=== PATIENT | male | born 1980 | race Caucasian/White ===

== ENCOUNTER 2020-01-08 09:41 | Outpatient (REF) | payer OTHER, SELFPAY ==
[2020-01-08 10:18] LABS: COVID-19 Test Negative (Negative); IDNOW Serial# 55D5AD1C
== END 2020-01-08 09:42 | disposition home or self-care (01) ==
LOC: HO.LAB 09:41
PROVIDERS: PCP Physician Assistant; Visit Provider Internal Medicine
DX: Z20.828 Contact with and (suspected) exposure to other viral communicable diseases (principal)
CPT/HCPCS: 87635; C9803

== ENCOUNTER → 2021-08-30 09:14 | Outpatient (BNVA) | payer SELFPAY | PROVIDERS: PCP Physician Assistant; Visit Provider Physician Assistant Medical | DX: Z02.79 Encounter for issue of other medical certificate (principal) ==

== ENCOUNTER 2021-11-06 07:25 | Emergency (ER) | payer OTHER, SELFPAY ==
--- NOTE | ~2021-11-06 | CT_ITS ---
EXAMINATION: CT ABDOMEN AND PELVIS WITH CONTRAST CLINICAL INFORMATION: Fever, urinary tract infection and back pain COMPARISON: Previous renal ultrasound April [address] of the abdomen and pelvis March 2019 TECHNIQUE: Multidetector volumetric images were obtained from the superior aspect of the liver through the pubic symphysis following administration 85 mL of Omnipaque 350 intravenous contrast. Sagittal and coronal reformatted images were obtained on the technologist's workstation. Oral contrast: Yes This CT examination was performed using dose optimization techniques as appropriate, variously including the following: *Automated exposure control *Adjustment of mA and/or kV according to patient size (this includes techniques or standardized protocols for targeted exams where dose is matched to indication/reason for exam; i.e. extremities or head) *Use of iterative reconstruction technique DLP: 581 mGy-cm FINDINGS: LUNG BASES: The visualized lung bases are unremarkable. LIVER, GALLBLADDER, AND BILIARY TREE: The liver is upper normal in size. The liver is normal in attenuation and contour. No focal hepatic lesion or biliary ductal dilatation is present. The gallbladder is unremarkable with no evidence of radiopaque gallstones, gallbladder wall thickening, or obvious pericholecystic inflammatory changes. PANCREAS: Unremarkable. SPLEEN: The spleen is upper normal in size measuring 14 cm in length. ADRENAL GLANDS: Unremarkable. KIDNEYS AND URETERS: The right kidney is larger than the left. The right kidney measures 14.3 and the left 11.7 cm in length. There may be a duplicated right renal collecting system. There is asymmetric increased right perinephric fat stranding, particularly adjacent to the upper pole of the right kidney. This extends superiorly under the right hemidiaphragm. There is a small amount of perinephric fluid adjacent to the lower pole of the right kidney. There is heterogeneous enhancement of the upper pole of the right kidney with approximately 4 cm area of low attenuation suggestive of pyelonephritis. There is a 2 x 4 mm stone in the lower pole of the right kidney. No left renal stone is seen. No hydronephrosis, ureteral dilatation or ureteral stone is seen. BLADDER: Not optimally distended but appears unremarkable. GASTROINTESTINAL TRACT: There are fluid-filled loops of small and large bowel probably representing an ileus. The appendix is not seen. The stomach is normal. ABDOMINAL WALL: No significant hernia is appreciated. LYMPH NODES: Normal. VASCULAR: Unremarkable. PELVIC VISCERA: Unremarkable. OSSEOUS STRUCTURES: Mild degenerative changes of the left hip joint. CT/CT abdomen pelvis w IV con IMPRESSION: Enlarged right kidney and right pyelonephritis. Small right lower pole renal stone. No hydronephrosis. Fleischner guidelines were followed.
[2021-11-06 07:47] LABS: Appearance Urine Turbid; Color Urine Dark Yellow; Glucose Urine UA Negative (Negative); Leukocyte Esterase Urine Large (3+) (Negative); Nitrite Urine Positive (Negative); PH 6.5 (5.0-9.0); Specific Gravity - Urine 1.025 (1.005-1.025); UMIC TRIGGER UACC YES; Urine Blood Moderate (2+) (Negative); Urine Ketones Trace mg/dL (Negative); Urine Protein 300 (3+) mg/dL (Neg-Trace)
[2021-11-06 07:52] VITALS: BP 149/79; PULSE 120; RESP 18; TEMP 38.9; O2SAT 96; BMI 27.8
[2021-11-06 07:52] LABS: Bacteria Urine 4+ (None Seen); Hyaline Casts Urine 0-2 /LPF (0-2); RBC Urine >20 /HPF (0-2); Squamous Epithelial Cell Urine 0-2 /HPF (0-2); UACC Culture Trigger YES; WBC Urine >50 /HPF (0-5)
[2021-11-06 08:35] VITALS: BP 147/91; PULSE 121; RESP 20; TEMP 37.7; O2SAT 96
[2021-11-06] MEDS: Cyclobenzaprine HCl 10 MG TABLET PO (09:00)
[2021-11-06] MEDS: 0.9 % Sodium Chloride 1,000 ML 999 ML IVCONT (09:01)
[2021-11-06] MEDS: levoFLOXacin/D5W 750 MG/150 ML PIGGYBACK 100 MG IV (09:01)
--- NOTE | 2021-11-06 09:02 | ED.MALEGU ---
HPI - Male Genitourinary General Chief complaint: Urogenital-Male Stated complaint: UTI Time Seen by Provider: 11/06/21 08:15 Source: patient Mode of arrival: ambulatory Limitations: no limitations History of Present Illness HPI Narrative: 41-year-old male with a past medical history of hypospadiaus, kidney stones seen by Urology in the past here who has prior history of cystoscope/lithotripsy/renal stenting in 2018 presenting to the ER with complaints of fevers, chills, fatigue, malaise, dysuria, urinary frequency/urgency with lower back pain since the past 2 days worse today. Reports he has been taking Motrin Tylenol and took 100 mg of Motrin at 06:00 prior to arrival. He reports he is and does not believe he has an STD and does not want to be tested for STDs at this time. He denies any dizziness, headaches, neck pain/stiffness, trouble swallowing or breathing, chest pain or shortness of breath, flank pain, abdominal pain, radiation of the back pain, hematuria, abnormal penile discharge, rashes, recent travel or sick contacts or any other symptoms complaints or concerns at this time. MD Complaint: dysuria Onset (ago): day(s) (3) Duration: constant and progressively worsening Severity: mild Relieving factors: none Exacerbating factors: urination Associated symptoms: Reports other (Back pain) Related Data Sexually active: Yes (With his he does not believe he has any STDs) Previous Rx's Medication Instructions Recorded cyclobenzaprine 10 mg tablet 10 mg PO Q8H #14 tabs 11/06/21 levofloxacin 750 mg tablet 750 mg PO DAILY UTI/pyelonephritis 11/06/21 7 days #7 tabs ondansetron 4 mg disintegrating 4 mg PO Q8H #14 tabs 11/06/21 tablet Allergies Allergy/AdvReac Type Severity Reaction Status Date / Time No Known Allergies Allergy Verified 11/06/21 07:51 [No Known Allergies*] Review of Systems Review of Systems: Constitutional : No Weight loss, No Fever, No Chills, No Night Sweats, No Fatigue, NoMalaise ENT/Mouth: No ear pain, No sore throat, No Difficulty swallowing Cardiovascular : No Chest Pain, No SOB, No Dyspnea on Exertion, No Orthopnea, NoEdema, No Palpitations Respiratory : No Cough, No Sputum, No Wheezing, No Dyspnea Gastrointestinal : No Nausea, No Vomiting, No Diarrhea, + abdominal Pain, No Hematochezia, No Melena Genitourinary : + Dysuria/urinary frequency/urgency, No testicular pain, No irregular bleeding, No Hematuria,No Urinary Incontinence, No Flank Pain Musculoskeletal : + back pain, No joint pain, No Myalgias, No Joint Swelling Skin : No Skin Lesions, No rash Neuro : No Weakness, No Numbness, No Paresthesias, No Loss of Consciousness, NoDizziness, No Headache Psych : No Social Issues, Heme/Lymph: No Bruising, No Bleeding,No Lymphadenopathy Endocrine : No Polyuria, No Polydipsia, No Temperature Intolerance PATIENT DENIES ANY THOUGHTS OF STDS Yes all other systems are reviewed and are negative [facility] Past Medical History Attestation statement: The following information was validated with the patient. Source: old records reviewed and nursing notes reviewed Social History Social History Patient Tobacco Use Status: Former Tobacco user Use of substances other than those prescribed or required for medical reasons: No Advance Directives: No Advance Directives Information Provided: Yes Physical Exam Vital Signs: Vital Signs: Last Vital Signs Temp 99.7 F 11/06/21 10:57 Pulse 113 H 11/06/21 10:57 Resp 16 11/06/21 10:57 BP 137/87 11/06/21 10:57 Pulse Ox 97 11/06/21 10:57 O2 Del Method 11/06/21 10:57 BMI result Body Mass Index 27.8 vital signs have been reviewed as normal and appeared to be correct. Blood pressure 149/79 Heart rate 120 Respiration rate normal. Temperature 102.1. Oxygen saturation normal. Appearance: Alert. Oriented X3. No acute distress. Head: Normal external exam. Normocephalic. Atraumatic. Eyes: PERRLA. EOMI. Conjunctiva and sclera normal. Eyelids normal. ENT: Pharynx normal. Uvula midline. Moist mucous membranes. No lesions/ulcerations or masses noted on the tongue. Normal voice. Neck: Normal inspection. Neck supple. FROM. No adenopathy. Thyroid Normal. No meningeal signs. CVS: Normal heart rate and rhythm. Heart sound normal. Pulses normal throughout. No murmurs/rales/gallops. Respiratory: No respiratory distress. Painless inspiration. Breath sounds normal. No wheezes/rales/rhonchi noted. Chest nontender. No accessory muscle usage noted or decreased air movement noted. Abdomen: Soft and nontender. Nondistended. No guarding. No rigidity. Bowel sounds normal in all 4 quadrants. No distention noted. No organomegaly noted. No visible injury noted. No rebound tenderness. Negative Rovsing sign. Negative obturator's sign. Negative psoas sign. Negative Acharya sign. Back: No CVA tenderness. Full range of motion noted. Nontender. No signs of trauma. Patient neuro intact bilaterally and distally on all 4 extremities. Patient's reflexes intact bilaterally and distally on all 4 extremities. No rashes/lesion/induration/fluctuance or signs of infection noted. Skin: Skin warm and dry. Normal skin color. Normal skin turgor. No rashes/lesions/lacerations noted. Extremities: Extremities exhibit normal range of motion and nontender. Neuro: Oriented X 3. No motor deficit. No sensory deficit. Reflexes normal. Normal steady gait. No focal neuro deficits noted. CN's II-XII intact bilaterally? Vascular: + radial pulses/+ 2 distal pedal pulses/+2 dorsalis pedis b/l. Normal cap refill. No cyanosis noted to upper extremity nails and lower extremity toes nails. Course Course Course Narrative: 845am - 41-year-old male with a past medical history of hypospadiaus, kidney stones seen by Urology in the past here who has prior history of cystoscope/lithotripsy/renal stenting in 2018 presenting to the ER with complaints of fevers, chills, fatigue, malaise, dysuria, urinary frequency/urgency with lower back pain since the past 2 days worse today. Reports he has been taking Motrin Tylenol and took 100 mg of Motrin at 06:00 prior to arrival. He reports he is and does not believe he has an STD and does not want to be tested for STDs at this time. Patient had a urine while he was in the waiting room and the UA has positive nitrates large amount of leukocytes with red blood cells/white blood cells. Plan: Labs, blood cultures, lactic acid, CT scan abdomen pelvis with IV contrast, gonorrhea chlamydia swab despite patient reporting he does not believe he has an STD I explained to him that we should still send the urine and he is agreeable, provide a L of IV fluids with IV Levaquin and re-evaluate. Reevaluation(s) Reevaluation #1: - labs reviewed patient with the leukocytosis of 16,000. Random glucose 141. Total bilirubin 1.3. Otherwise all other labs are within normal limits. - awaiting CT scan of abdomen and pelvis with IV contrast. Time: 09:58 Reevaluation #2: - CT scan abdomen pelvis with IV contrast revealed enlarged right kidney and right pyelonephritis. Small right lower pole renal stone. No hydronephrosis noted. - patient is tolerating p.o. fluids/solids. I did recommend admission although patient with rather will home. Therefore at this time will DC home with p.o. antibiotics along with Zofran and Flexeril and instructions return if any new or worsening symptoms follow up with primary care provider. Patient understands agrees with this plan. Time: 10:58 MDM - Male Genitourinary Medical Records Attestation: I reviewed the patient's medical records. Lab Data Attestation: I reviewed the patient's lab results. Result diagrams: 11/06/21 08:56 09 08:56 Labs: Lab Results 11/06/21 11/06/21 11/06/21 Range/Units 07:35 08:56 08:56 WBC 16.3 H (4.8-10.8) X10*3/uL RBC 5.64 (4.60-5.80) X10*6/uL Hgb 17.3 (14.0-18.0) g/dl Hct 49.1 (42.0-52.0) % MCV 87.1 (80.0-98.0) fL MCH 30.7 (27.0-33.0) pg MCHC 35.2 (31.0-36.0) g/dl RDW 12.6 (11.0-16.0) % Plt Count 172 (160-400) X10*3/uL MPV 9.4 (9.4-12.4) fL Immature Gran % (Auto) 0.4 (0.0-0.4) % Neut % (Auto) 91.9 H (45-73) % Lymph % (Auto) 2.9 L (20-40) % Hardin % (Auto) 4.5 (2-11) % Eos % (Auto) 0.1 (0-4) % Baso % (Auto) 0.2 (0-2) % Lymph # (Auto) 0.5 L (1.2-4.9) X10*3/uL Hardin # (Auto) 0.7 (0.1-1.2) X10*3/uL Eos # (Auto) 0.0 (0.0-0.4) X10*3/uL Baso # (Auto) 0.0 (0.0-0.2) X10*3/uL Abs Immat Gran (auto) 0.07 H (0.00-0.03) X10*3/uL Absolute Neuts (auto) 15.0 H (2.0-8.3) x10*3/uL Absolute Nucleated RBC 0.000 (0.0-0.012) X10*3/uL Nucleated RBC % (auto) 0.0 (0.0-0.2) /100WBC Smear Tech's Comments VERIFIED PT 13.6 H (10.0-13.1) SEC INR 1.2 H (0.9-1.1) Sodium (135-145) mmol/L Potassium (3.3-5.1) mmol/L Chloride (96-108) mmol/L Carbon Dioxide (22-29) mmol/L Anion Gap (12-20) BUN (9-16) mg/dL Creatinine (0.5-1.4) mg/dL Estim Creat Clear Calc Estimated GFR Random Glucose (60-115) mg/dL Lactic Acid (0.5-2.0) mmol/L Calcium (8.4-10.2) mg/dL Magnesium (1.6-2.6) mg/dL Total Bilirubin (0.0-1.0) mg/dL AST (5-37) U/L ALT (0-40) U/L Alkaline Phosphatase (39-117) U/L Total Protein (6.5-8.0) g/dL Albumin (3.5-5.0) g/dL Urine Color Dark Yellow Urine Appearance Turbid Urine pH 6.5 (5.0-9.0) Ur Specific Mans[place] 1.025 (1.005-1.025) Urine Protein 300 (3+) H (Neg-Trace) mg/dL Urine Glucose (UA) Negative (Negative) mg/dL Urine Ketones Trace (Negative) mg/dL Urine Blood Moderate (2+) H (Negative) Urine Nitrite Positive H (Negative) Ur Leukocyte Esterase Large (3+) H (Negative) Urine RBC >20 H (0-2) /HPF Urine WBC >50 H (0-5) /HPF Ur Squamous Epith Cells 0-2 (0-2) /HPF Urine Bacteria 4+ (None Seen) Hyaline Casts 0-2 (0-2) /LPF 11/06/21 11/06/21 Range/Units 08:56 08:56 WBC (4.8-10.8) X10*3/uL RBC (4.60-5.80) X10*6/uL Hgb (14.0-18.0) g/dl Hct (42.0-52.0) % MCV (80.0-98.0) fL MCH (27.0-33.0) pg MCHC (31.0-36.0) g/dl RDW (11.0-16.0) % Plt Count (160-400) X10*3/uL MPV (9.4-12.4) fL Immature Gran % (Auto) (0.0-0.4) % Neut % (Auto) (45-73) % Lymph % (Auto) (20-40) % Hardin % (Auto) (2-11) % Eos % (Auto) (0-4) % Baso % (Auto) (0-2) % Lymph # (Auto) (1.2-4.9) X10*3/uL Hardin # (Auto) (0.1-1.2) X10*3/uL Eos # (Auto) (0.0-0.4) X10*3/uL Baso # (Auto) (0.0-0.2) X10*3/uL Abs Immat Gran (auto) (0.00-0.03) X10*3/uL Absolute Neuts (auto) (2.0-8.3) x10*3/uL Absolute Nucleated RBC (0.0-0.012) X10*3/uL Nucleated RBC % (auto) (0.0-0.2) /100WBC Smear Tech's Comments PT (10.0-13.1) SEC INR (0.9-1.1) Sodium 136 (135-145) mmol/L Potassium 4.0 (3.3-5.1) mmol/L Chloride 96 (96-108) mmol/L Carbon Dioxide 27 (22-29) mmol/L Anion Gap 17 (12-20) BUN 15 (9-16) mg/dL Creatinine 1.35 (0.5-1.4) mg/dL Estim Creat Clear Calc 82.9 Estimated GFR 58 Random Glucose 141 H (60-115) mg/dL Lactic Acid 1.1 (0.5-2.0) mmol/L Calcium 9.2 (8.4-10.2) mg/dL Magnesium 1.8 (1.6-2.6) mg/dL Total Bilirubin 1.3 H (0.0-1.0) mg/dL AST 18 (5-37) U/L ALT 25 (0-40) U/L Alkaline Phosphatase 82 (39-117) U/L Total Protein 7.6 (6.5-8.0) g/dL Albumin 4.6 (3.5-5.0) g/dL Urine Color Urine Appearance Urine pH (5.0-9.0) Ur Specific Mans[place] (1.005-1.025) Urine Protein (Neg-Trace) mg/dL Urine Glucose (UA) (Negative) mg/dL Urine Ketones (Negative) mg/dL Urine Blood (Negative) Urine Nitrite (Negative) Ur Leukocyte Esterase (Negative) Urine RBC (0-2) /HPF Urine WBC (0-5) /HPF Ur Squamous Epith Cells (0-2) /HPF Urine Bacteria (None Seen) Hyaline Casts (0-2) /LPF Imaging Data CT scan abdomen pelvis with IV contrast: Attestation: I personally reviewed and interpreted this imaging study as follows: Radiologist's impression: FINDINGS: LUNG BASES: The visualized lung bases are unremarkable.? LIVER, GALLBLADDER, AND BILIARY TREE: The liver is upper normal in size. The liver is normal in attenuation and contour. No focal hepatic lesion or biliary ductal dilatation is present. The gallbladder is unremarkable with no evidence of radiopaque gallstones, gallbladder wall thickening, or obvious pericholecystic inflammatory changes.? PANCREAS: Unremarkable.? SPLEEN: The spleen is upper normal in size measuring 14 cm in length. ADRENAL GLANDS: Unremarkable.? KIDNEYS AND URETERS: The right kidney is larger than the left. The right kidney measures 14.3 and the left 11.7 cm in length. There may be a duplicated right renal collecting system. There is asymmetric increased right perinephric fat stranding, particularly adjacent to the upper pole of the right kidney. This extends superiorly under the right hemidiaphragm. There is a small amount of perinephric fluid adjacent to the lower pole of the right kidney. There is heterogeneous enhancement of the upper pole of the right kidney with approximately 4 cm area of low attenuation suggestive of pyelonephritis. There is a 2 x 4 mm stone in the lower pole of the right kidney. No left renal stone is seen. No hydronephrosis, ureteral dilatation or ureteral stone is seen. BLADDER: Not optimally distended but appears unremarkable.? GASTROINTESTINAL TRACT: There are fluid-filled loops of small and large bowel probably representing an ileus. The appendix is not seen. The stomach is normal. ABDOMINAL WALL: No significant hernia is appreciated.? LYMPH NODES: Normal. VASCULAR: Unremarkable. PELVIC VISCERA: Unremarkable.? OSSEOUS STRUCTURES: Mild degenerative changes of the left hip joint.? CT/CT abdomen pelvis w IV con IMPRESSION: Enlarged right kidney and right pyelonephritis. Small right lower pole renal stone. No hydronephrosis. ? Fleischner guidelines were followed. Critical Care Time Critical Care Time Critical Care Time: Yes Total Critical Care Time: 60 Attestation: I personally attest to this time spent taking care of the patient Discharge Plan Discharge Clinical Impression: Acute pyelonephritis, Fever, UTI (urinary tract infection), Renal calculi Patient Disposition: Home, Self-Care Instructions: Kidney Infection (ED) Prescriptions: New levofloxacin 750 mg tablet 750 mg PO DAILY 7 Days Qty: 7 0RF ondansetron 4 mg tablet,disintegrating 4 mg PO Q8H Qty: 14 0RF cyclobenzaprine 10 mg tablet 10 mg PO Q8H Qty: 14 0RF Referrals: Dani Corcoran MD [Physician] - (Call on Monday to make a follow-up appointment within the next few weeks) Max Rayo PA [Primary Care Provider] - Stand Alone Forms: Work/School Release
[2021-11-06 09:09] LABS: INTERNATIONAL NORM RATIO 1.2 (0.9-1.1); Prothrombin Time 13.6 SEC (10.0-13.1)
[2021-11-06 09:15] LABS: Lactic Acid 1.1 mmol/L (0.5-2.0)
[2021-11-06 09:21] LABS: Alanine Aminotransferase 25 U/L (0-40); Albumin Level 4.6 g/dL (3.5-5.0); Alkaline Phosphatase 82 U/L (39-117); Anion Gap 17 (12-20); Aspartate Amino Transferase 18 U/L (5-37); Bilirubin Total 1.3 mg/dL (0.0-1.0); Blood Urea Nitrogen 15 mg/dL (9-16); Calcium 9.2 mg/dL (8.4-10.2); Carbon Dioxide 27 mmol/L (22-29); Chloride 96 mmol/L (96-108); Creatinine Clr Calc Pharmacy 82.9; Estimated Glomerular Filt Rate 58; Glucose Random 141 mg/dL (60-115); Magnesium 1.8 mg/dL (1.6-2.6); Sodium 136 mmol/L (135-145); Total Protein 7.6 g/dL (6.5-8.0)
[2021-11-06 09:23] LABS: Basophils Percent Auto 0.2 % (0-2); Eosinophils Percent Auto 0.1 % (0-4); Hematocrit 49.1 % (42.0-52.0); Hemoglobin 17.3 g/dl (14.0-18.0); Imm Gran Abs Auto 0.07 X10*3/uL (0.00-0.03); Imm Gran Pct Auto 0.4 % (0.0-0.4); Lymphocytes Absolute Auto 0.5 X10*3/uL (1.2-4.9); Lymphocytes Percent Auto 2.9 % (20-40); MANUAL DIFF FLAG SCAN; Mean Corpuscular HGB Conc 35.2 g/dl (31.0-36.0); Mean Corpuscular Hemoglobin 30.7 pg (27.0-33.0); Mean Corpuscular Volume 87.1 fL (80.0-98.0); Mean Platelet Volume 9.4 fL (9.4-12.4); Monocytes Absolute Auto 0.7 X10*3/uL (0.1-1.2); Monocytes Percent Auto 4.5 % (2-11); Neutrophils Percent Auto 91.9 % (45-73); Platelet Count 172 X10*3/uL (160-400); Red Blood Count 5.64 X10*6/uL (4.60-5.80); Red Cell Distribution Width 12.6 % (11.0-16.0); SCAN SMEAR FLAG 1; White Blood Count 16.3 X10*3/uL (4.8-10.8)
[2021-11-06 09:53] LABS: SLIDE REVIEW VERIFIED
[2021-11-06] MEDS: iohexoL 350 MG/ML 100 ML INFUS..BTL IV (10:24)
[2021-11-06 10:57] VITALS: BP 137/87; PULSE 113; RESP 16; TEMP 37.6; O2SAT 97
[2021-11-06 13:39] LABS: CT PCR NOT DETECTED (Not Detect.); NG PCR NOT DETECTED (Not Detect.)
== END 2021-11-06 11:53 | disposition home or self-care (01) ==
PROVIDERS: Physician Assistant Medical; Emergency Provider Emergency Medicine; PCP Physician Assistant
DX: N20.0 Calculus of kidney (principal); N10 Acute pyelonephritis; R50.9 Fever, unspecified; N39.0 Urinary tract infection, site not specified; B96.20 Unspecified Escherichia coli [E. coli] as the cause of diseases classified elsewhere; Z87.442 Personal history of urinary calculi
CPT/HCPCS: 36415; 74177; 80053; 81001; 83605; 83735; 85025; 85610; 87040; 87086; 87088; 87186; 87491; 87591; 96361; 96365; 96366; 99284; J1956; Q9967

== ENCOUNTER → 2023-08-04 10:07 | Outpatient (BNVA) | payer SELFPAY | PROVIDERS: PCP Physician Assistant; Visit Provider Registered Nurse | DX: Z02.79 Encounter for issue of other medical certificate (principal) ==

== ENCOUNTER → 2024-07-19 05:45 | Outpatient (BNV) | payer OTHER, SELFPAY | PROVIDERS: Emergency Provider Emergency Medicine; PCP Physician Assistant; Visit Provider Radiology Diagnostic Radiology | DX: T18.2XXA Foreign body in stomach, initial encounter (principal) | CPT/HCPCS: 74018 ==

== ENCOUNTER 2024-07-19 06:29 | Emergency (ER) | payer OTHER, SELFPAY ==
--- NOTE | ~2024-07-19 | XR_ITS ---
CLINICAL HISTORY: swallowed ear bud 1 view abdomen Comparison: None Findings: No pneumoperitoneum or pneumatosis. No abnormal calcifications. No acute fractures. Metallic foreign body is seen projecting just inferior to the left 12th rib in the midabdomen. This could be within small or large bowel. IMPRESSION: Metallic foreign body left midabdomen. This document has been electronically signed by: Mehrdad Luna MD on 07/19/2024 07:15:18
[2024-07-19 06:32] VITALS: BP 155/102; PULSE 78; RESP 20; TEMP 36.6; O2SAT 98; BMI 27.9
--- NOTE | 2024-07-19 06:57 | ED.GENADULT ---
HPI - General Adult General Chief complaint: General Medical Stated complaint: swallowed an ear bud Time Seen by Provider: 07/19/24 06:57 Source: patient Mode of arrival: ambulatory Limitations: no limitations History of Present Illness ED Provider: Dr. Radha Wayne HPI narrative: Patient comes to the emergency room complaining of swallowing an air bud. Related Data Previous Rx's ?Medication ?Instructions ?Recorded cyclobenzaprine 10 mg tablet 10 mg PO Q8H #14 tabs 11/06/21 levofloxacin 750 mg tablet 750 mg PO DAILY UTI/pyelonephritis 11/06/21 7 days #7 tabs ondansetron 4 mg disintegrating 4 mg PO Q8H #14 tabs 11/06/21 tablet peg 3350-electrolytes 236 240 ml PO Q10M #4,000 mL 07/19/24 gram-22.74 gram-6.74 gram-5.86 gram solution (Golytely) Allergies Allergy/AdvReac Type Severity Reaction Status Date / Time No Known Allergies Allergy Verified 07/19/24 06:36 [No Known Allergies*] [facility] Social History Social History Alcohol intake: former Patient Tobacco Use Status: Former Tobacco user Smoked in Last 30 Days: No Use of substances other than those prescribed or required for medical reasons: No Advance Directives: No Advance Directives Information Provided: Yes Do you have a plan to hurt others: No Plan Physical Exam ED Vital Signs: Vital Signs - 24 hr 07/19/24 06:32 Temperature 97.8 F Pulse Rate 78 Respiratory Rate 20 Blood Pressure 155/102 H Pulse Oximetry 98 Oxygen Delivery Method Room Air BMI result Body Mass Index 27.9 Const Other: Appearance: Alert. Oriented X3. No acute distress. Eyes: Pupils equal, round and reactive to light. ENT: Pharynx normal. Neck: Normal inspection. Neck supple. No lymph nodes noted. No crepitus CVS: Normal heart rate and rhythm. Pulses normal. Normal S1 and S2 Respiratory: No respiratory distress. Breath sounds normal. No Wheezing. No rales Abdomen: Soft and nontender. No rigidity. No distention. Skin: Skin warm and dry. Normal skin color. Normal skin turgor. Extremities: No lower extremity edema. No Lacerations. No Rash Neuro: Oriented X 3. No motor deficit. No sensory deficit. Moving all extremities. No slurred speech. CN 2 through 12 grossly intact Psych: calm, cooperative, normal affect Medical Decision Making Medical Decision Making MDM Narrative: I discussed the patient with Dr. Billings from Gastroenterology. Ideally, the air bud should be removed. However, based on the x-ray, it looks like the electronic piece already moved into the small intestine, Therefore endoscopy would not be of any benefit. Dr. Billings recommends given the patient at this time a colonoscopy prep and do a KUB 4-1/2 hours from now to see where the air bud is however, the patient states that he does not want to stay in the hospital to repeat the x-ray. He is willing to take the colonoscopy prep. I discussed with the patient that the dangers of the lithium battery is perforation in the intestine, causing significant problems that may be life debilitating or threatening. Patient verbalizes that he understands. Patient's colonoscopy prep is waiting for him at his pharmacy. Patient was instructed to call his primary care physician today, an x-ray needs to be done around noon time. And the PCP needs to follow-up with the results. Discharge Plan Discharge Clinical Impression: Foreign body alimentary tract Patient Disposition: Left Against Medical Advice Additional Instructions: Gastroenterology recommends that you take a colonoscopy prep and then get an x-ray to check where the air bud is. A lithium battery in the intestine may cause debilitating or life-threatening emergencies. Please contact your primary care physician today.. Please call your primary care physician today, you need to get an x-ray around noon. Your PCP needs to follow-up with the results. If you have any abdominal pain, any abnormal symptoms, please return immediately to the emergency room. Prescriptions: New peg 3350-electrolytes [Golytely] 236-22.74-6.74 -5.86 gram recon soln 240 ml PO Q10M Qty: 4000 0RF Rx Instructions: until fecal effluent is clear and you pass the foreign body No Action levofloxacin 750 mg tablet 750 mg PO DAILY 7 Days Qty: 7 0RF ondansetron 4 mg tablet,disintegrating 4 mg PO Q8H Qty: 14 0RF cyclobenzaprine 10 mg tablet 10 mg PO Q8H Qty: 14 0RF Print Language: Ivorian
--- OUTSIDE RECORDS SUMMARY | 2024-07-19 07:11 | XMS_ITS ---
Author Name [facility] [place] [facility] [place] Address [address] [place] [address] Care Team Providers Care International Marketing Executive Name Role Phone JOSS CASILLAS Primary Care Provider Unavail able Insurance Providers: All historical and current Section Date Range: From patient's date of to the date document was created. This section includes the names of all active insurance providers for the patient. Insurance Provider Type of Coverage Plan Name Start of Policy Coverage End of Policy Coverage Group Number Member ID Insurance Provider's Telephone Number Policy Sofia's Name Patient's Relationship to Policy Sofia [employer] OF [employer] [facility] [employer]GANIZ Sep 13, 2009 [id number] [phone] ROSIO GUZMÁN PATIENT Selected Encounter This section includes the information on record at [place] for the Encounter. Date/Time Encounter Type Encounter Description Reason Pro vider Source June 19, 2024 03:44 PM Outpatient Encounter ADMIN PAT ACTIVTIES (MASNONCT) IHE Encounter Template Text not used by [place] Plan of Treatment: Future Appointments (+ 6 months) and Future Tests (+/- 45 days) The Plan of Treatment section includes future care activities for the patient from all [facility] treatment[facility]. This section includes future appointments and future orders which are active, pending or scheduled. Future Appointments This section includes appointments that were scheduled to occur 6 months from the date of the Encounter, up to a maximum of 20 appointments. The data comes from all [facility] facilities. Appointment Date/Time Appointment Type Appointme nt Facility Name Nov 12, 2024 09:30 AM AMBULATORY - MEDICINE [facility] Dec 16, 2024 09:30 AM AMBULATORY - PSYCHIATRY [facility] Lab Results: +/- 30 days of the encounter This section includes the Chemistry and Hematology Lab Results on record with [place] for the patient. Radiology Reports and Pathology Reports are provided separately, in subsequent sections. Lab Results This section contains the Chemistry/Hematology Results that were resulted 30 days before or 30 daysafter the date of the Encounter. Date/Time Source Result Type Result - Unit Interpretation Reference Range Specimen Type Comment June 17, 2024 10:53 AM [facility] DRUGS OF ABUSE URINE Specimen Type: URINE Comment: Urine with Cr <5 is diluted or substituted. Cr between 5 and 20 is very dilute. Urine with SG of 1.001 or less is diluted or substituted. SG of 1.003 or less is very dilute. Urine with a pH <3 or >11 has been adulterated and is unsuitable for testing by our current method. Urine with pH between 3 and 4 OR 10 and 11 may have been adulterated. Confirmation not sent by lab. Ordering Provider: REMY AWAD Report Released Date/Time: June 17, 2024 10:35 AM Reporting Lab: [address] [id number] Performing Lab: [address] [id number] AMPHETAMINES SCREEN NONE-DETECTED None-D etected, Cutoff = 1000 ng/mL BENZODIAZEPINES SCREEN NONE-DETECTED Non e-Detected, Cutoff = 200 ng/mL COCAINE SCREEN NONE-DETECTED None-Detect ed,Cutoff = 300 ng/mL OPIATES SCREEN NONE-DETECTED None-Detect ed, Cutoff = 300 ng/mL CANNABINOIDS SCREEN POSITIVE HH None-Detect ed,Cutoff = 50 ng/mL BARBITURATES SCREEN NONE-DETECTED None-D etected,Cutoff = 200 ng/mL OXYCODONE SCREEN NONE-DETECTED None-Dete cted, Cutoff = 100 ng/mL BUPRENORPHINE SCREEN NONE-DETECTED None Detected, Cutoff = 5 ng/mL ALCOHOL, ETHYL URINE NONE-DETECTED None- Detected, cutoff = 10 mg/dL FENTANYL SCREEN NONE-DETECTED None-Detec brien, Cutoff = 1.00 ng/mL PH, CRUZ 6.0 [pH] 5.0-8.0 CREATININE, CRUZ 122.00 mg/dL 63-166 SP.GRAVITY, CRUZ 1.022 1.005-1.030 METHADONE SCREEN NONE-DETECTED None-Dete cted,Cutoff = 300 ng/mL ETHYL GLUCURONIDE SCREEN NONE-DETECTED N one-Detected, cutoff = 500 ng/mL Social History: Smoking Status (Most current) and Tobacco Use (All prior to encounter date) This section includes the most current, and the historical, smoking and tobacco- related health factors from the [place] facility where the Encounter took place. Current Smoking Status This section includes the most current smoking, or tobacco-related health factor, from the [place] facility where the Encounter took place. Date/Time Current Smoking Status Comment [facility] Sep 26, 2023 10:00 AM [facility] Tobacco Use History This section includes a history of the smoking, or tobacco-related health factors, that were collected on or before the date of the Encounter. The data comes from the [place] facility where the Encounter took place. Date/Time Smoking Status/Tobac co Use Comment Facility Sep 13, 2022 10:00 AM VA-TOBACCO NEVER USED [place] [facility] [place] [facility] Sep 10, 2021 11:00 AM VA-TOBACCO [place] USED [place] [facility] [place] [facility] Oct 08, 2020 03:30 PM VA-TOBACCO [place] USED [place] [facility] [place] [facility] June 21, 2018 11:26 AM VA-TOBACCO NEVER USED [place] [facility] [place] [facility] May 16, 2017 09:43 AM LIFETIME NON-TOBACCO USER [place] [facility] [place] [facility] June 17, 2016 01:21 PM LIFETIME NON-[place]BACCO USER [place] [facility] [place] [facility] Jun 09, 2015 01:51 PM QUIT TOBACCO USE > 7 YEARS AGO [place] [facility] [place] [facility] June 20, 2011 11:31 AM LIFETIME NON-TOBACCO US[place] non-tobacco user [place] [facility] [place] [facility] Encounter Notes: All associated encounter notes This section contains the clinical notes associated to the Encounter. 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
[2024-07-19 07:58] VITALS: BP 155/102; PULSE 78; RESP 20; TEMP 36.6; O2SAT 98
== END 2024-07-19 07:59 | disposition left against medical advice (07) ==
PROVIDERS: Emergency Provider Emergency Medicine; PCP Physician Assistant
DX: T18.3XXA Foreign body in small intestine, initial encounter (principal); R10.2 Pelvic and perineal pain; W44.G1XA Audio device entering into or through a natural orifice, initial encounter; Y93.9 Activity, unspecified; Y92.9 Unspecified place or not applicable; Y99.8 Other external cause status
CPT/HCPCS: 74018; 99284

== ENCOUNTER → 2024-07-23 06:31 | Outpatient (BNV) | payer OTHER, SELFPAY | PROVIDERS: PCP Physician Assistant; Visit Provider Radiology Diagnostic Radiology | DX: T18.2XXA Foreign body in stomach, initial encounter (principal) | CPT/HCPCS: 74018 ==

== ENCOUNTER 2024-07-23 06:55 | Emergency (ER) | payer OTHER, SELFPAY ==
--- NOTE | ~2024-07-23 | XR_ITS ---
CLINICAL HISTORY: SWALLOWED EAR BUD FRI 1 view abdomen Comparison: CR - XR KUB - 07/19/24 06:45 EDT Findings: No pneumoperitoneum or pneumatosis. No abnormal calcifications. No acute fractures. IMPRESSION: Metallic foreign body no longer identified. This document has been electronically signed by: Bette Sierra MD on 07/23/2024 08:15:55
[2024-07-23 07:01] VITALS: BP 145/96; PULSE 99; RESP 16; TEMP 36.5; O2SAT 96; BMI 27.9
--- NOTE | 2024-07-23 09:00 | PC.NURSE ---
patient a&ox3, vss, xray previously performed, pt awaiting results, provider at bedside, plan of care ongoing
--- NOTE | 2024-07-23 09:16 | ED_ITS ---
HPI - General Adult General Chief complaint: Skin/Abscess/Foreign Body Stated complaint: swolled ear bud om monday Time Seen by Provider: 07/23/24 09:03 Source: patient, RN notes reviewed and old records reviewed Mode of arrival: ambulatory History of Present Illness ED Provider: La Rojas PA-C HPI narrative: 43-year-old male no significant past medical history presenting to ED for foreign body check s/p accidentally swallowing air bud on 07/19/2024. Patient was evaluated in our ED at that time, metallic foreign body appreciated on x-ray, patient left AMA but completed colonic prep with GoLYTELY. States he did not see passage of ear bud, & does not believe he passed it. Admits had additional monitoring x-ray on Monday at the [facility] which still showed foreign body. Does report episode of bloody stool yesterday, denies at present. Denies abdominal pain, nausea, vomiting, fever Related Data Previous Rx's ?Medication ?Instructions ?Recorded cyclobenzaprine 10 mg tablet 10 mg PO Q8H #14 tabs 11/06/21 levofloxacin 750 mg tablet 750 mg PO DAILY UTI/pyelonephritis 11/06/21 7 days #7 tabs ondansetron 4 mg disintegrating 4 mg PO Q8H #14 tabs 11/06/21 tablet peg 3350-electrolytes 236 240 ml PO Q10M #4,000 mL 07/19/24 gram-22.74 gram-6.74 gram-5.86 gram solution (Golytely) Allergies Allergy/AdvReac Type Severity Reaction Status Date / Time No Known Allergies Allergy Verified 07/23/24 07:03 [No Known Allergies*] Review of Systems Review of Systems: Yes all other systems are reviewed and are negative Constitutional: Constitutional: Reports as per [facility] Past Medical History Attestation statement: The following information was validated with the patient. Source: old records reviewed Social History Social History Alcohol intake: former Patient Tobacco Use Status: Former Tobacco user Advance Directives: No Advance Directives Information Provided: No Physical Exam ED Vital Signs: Vital Signs - 24 hr 07/23/24 07:01 Temperature 97.7 F Pulse Rate 99 Respiratory Rate 16 Blood Pressure 145/96 H Pulse Oximetry 96 Oxygen Delivery Method Room Air BMI result Body Mass Index 27.9 Const General: cooperative, healthy appearing and no acute distress Orientation/consciousness: patient oriented x3 Limitations: no limitations HENMT Head: Yes normal to inspection and Yes atraumatic Ears: hearing grossly normal bilaterally General nose exam: Normal external nose present Face and sinus: Yes normal facial exam Eyes General: appearance normal, both eyes and all related structures EOM: EOMs intact bilaterally Neck Neck: Yes normal visual inspection and Yes no meningeal signs Resp Effort & Inspection: normal respiratory effort and no respiratory distress Cardio Rate: regular rate GI Inspection: Yes normal to inspection Palpation (GI): Soft to palpation, nontender, no guarding and not rigid Skin Rashes: no rashes Wounds: no wounds Neuro General: patient oriented x3, tone normal and no meningeal signs Cranial nerves: Yes CN's II-XII intact bilaterally Gait exam (Neuro): Normal gait present Extrem General: Yes normal to inspection Course Course Course Narrative: XR KUB IMPRESSION: Metallic foreign body no longer identified. > recommended GI follow-up Results discussed with patient including worrisome signs and symptoms and strict return precautions, and when to return to the emergency department. They verbalized understanding and feel safe for discharge at this time. Medical Decision Making Medical Decision Making [facility] Narrative: 43-year-old male no significant past medical history presenting to ED for foreign body check s/p accidentally swallowing air bud on 07/19/2024. On exam vital signs stable, NAD, nontoxic appearing physical exam as noted above. Concern for retained foreign body vs passage of foreign body. Rule out perforation. Lower suspicion for acute GI bleed at this time. No need for labs at this time Plan: KUB Please refer to course for remaining clinical decision making, interpretation of labs/imaging results, and discussions with consultants and/or family members. Differential Diagnosis Differential Diagnoses: The differential diagnosis associated with the presentation includes As above Independent Interpretation I performed an independent interpretation of an: Plain X-Ray (My interpretation: No appreciable foreign body) Radiology Impression Discussion of test interpretation with radiology: I have reviewed the radiologist's reading. External Record Review External record reviewed: Inpatient record, Office record, Outpatient record, Prior outpatient labs, Prior outpatient radiology, Primary care record and Outside ED record Tests considered The following testing was considered but not selected: As above Chronic Conditions Patient?s care impacted by: Other Social Determinants Patient?s care significantly limited by Social Determinants of Health including: Other Social Determinant of Health Discharge Plan Discharge Clinical Impression: Foreign body alimentary tract Patient Disposition: Home, Self-Care Additional Instructions: There is no longer foreign body identified in your abdomen Please follow-up with gastroenterology specialist If you develop abdominal pain, rectal bleeding, persistent nausea, vomiting or fever return to the ED Prescriptions: No Action levofloxacin 750 mg tablet 750 mg PO DAILY 7 Days Qty: 7 0RF ondansetron 4 mg tablet,disintegrating 4 mg PO Q8H Qty: 14 0RF cyclobenzaprine 10 mg tablet 10 mg PO Q8H Qty: 14 0RF peg 3350-electrolytes [Golytely] 236-22.74-6.74 -5.86 gram recon soln 240 ml PO Q10M Qty: 4000 0RF Rx Instructions: until fecal effluent is clear and you pass the foreign body Referrals: [facility] [Provider Group] - 1 week Max Rayo PA [Primary Care Provider] - Print Language: Senegalese
[2024-07-23 09:25] VITALS: BP 138/92; PULSE 98; RESP 16; TEMP 36.7; O2SAT 98
== END 2024-07-23 09:27 | disposition home or self-care (01) ==
PROVIDERS: Emergency Provider Emergency Medicine Emergency Medical Services; PCP Physician Assistant
DX: T18.3XXA Foreign body in small intestine, initial encounter (principal); W44.G1XA Audio device entering into or through a natural orifice, initial encounter; Y93.9 Activity, unspecified; Y92.9 Unspecified place or not applicable; Y99.8 Other external cause status
CPT/HCPCS: 74018; 99282; 99283